=== PATIENT | female | born 1995 | race African-American/Black ===

== ENCOUNTER 2017-03-20 22:28 | Emergency (ER) | payer SELFPAY ==
[~2017-03-20] VITALS: Ht 165.1 cm; Wt 90.7 kg
[~2017-03-20 22:28] MED LIST: PNV1TABL25 PO
[2017-03-20 22:40] VITALS: BP 125/73
[2017-03-20] MEDS ORDERED: NAPR500T PO (22:51)
[2017-03-20] MEDS ORDERED: SULF1TAB24 PO (22:51)
--- NOTE | 2017-03-20 22:51 | PHYS DOC ---
Past Medical History Past Medical History: No Pertinent History Past Surgical History: No Surgical History Alcohol Use: None Drug Use: None Adult General Chief Complaint Chief Complaint: SKIN RASH/ABSCESS HPI HPI Patient is a 21 year old female presents to the emergency department with complaints of an abscess on the left medial thigh. She states it been present for one week. She states she poked with a needle and drained green stuff today. She reports no fever. Review of Systems Review of Systems Constitutional: Denies fever or chills [] Eyes: Denies change in visual acuity, redness, or eye pain [] HENT: Denies nasal congestion or sore throat [] Respiratory: Denies cough or shortness of breath [] Cardiovascular: No additional information not addressed in HPI [] GI: Denies abdominal pain, nausea, vomiting, bloody stools or diarrhea [] : Denies dysuria or hematuria [] Musculoskeletal: Denies back pain or joint pain [] Integument: Abscess Neurologic: Denies headache, focal weakness or sensory changes [] Endocrine: Denies polyuria or polydipsia [] Allergies Allergies Allergies Coded Allergies Type Severity Reaction Last Updated Verified No Known Drug Allergies 09/26/13 No Physical Exam Physical Exam Constitutional: Well developed, well nourished, no acute distress, non-toxic appearance. [] Neck: Normal range of motion, no tenderness, supple without lymphadenopathy, no stridor. [] Cardiovascular:Heart rate regular rhythm, no murmur [] Lungs & Thorax: Bilateral breath sounds clear to auscultation [] Abdomen: Bowel sounds normal, soft, no tenderness, no masses, no pulsatile masses. [] Skin: Left medial thigh with a 1 cm area of induration with erythema. There is no fluctuance. Is mildly tender to palpate. EKG EKG [] Radiology/Procedures Radiology/Procedures [] Course & Med Decision Making Course & Med Decision Making Pertinent Labs and Imaging studies reviewed. (See chart for details) [] Dragon Disclaimer Dragon Disclaimer This electronic medical record was generated, in whole or in part, using a voice recognition dictation system. Departure Departure Impression: Primary Impression: Cellulitis Disposition: 01 HOME, SELF-CARE Condition: STABLE Referrals: NO PCP (PCP) [facility] Patient Instructions: Cellulitis Additional Instructions: Warm packs to the affected area for 15 minutes 5-6 times a day. Please do not poke or prod the affected area. Scripts Naproxen (NAPROSYN) 500 Mg Tablet 500 MG PO BID Y for PAIN, #20 TAB Prov: JUAN MANUEL BROTHERS APRN 03/20/17 Sulfamethoxazole/Trimethoprim (BACTRIM DS TABLET) 1 Each Tablet 1 TAB PO BID, #20 TAB Prov: JUAN MANUEL BROTHERS APRN 03/20/17 Problem Qualifiers Primary Impression: Cellulitis Site of cellulitis: extremity Site of cellulitis of extremity: lower extremity Laterality: left Qualified Codes: L03.116 - Cellulitis of left lower limb JUAN MANUEL BROTHERS APRN Mar 20, 2017 22:51
== END 2017-03-20 22:55 | disposition home or self-care (01) ==
LOC: ER 22:28
DX: L03.116 Cellulitis of left lower limb (principal)
CPT/HCPCS: 99283

== ENCOUNTER 2017-03-24 17:11 | Emergency (ER) | payer SELFPAY ==
[~2017-03-24] VITALS: Ht 165.1 cm; Wt 90.7 kg
[~2017-03-24 17:11] MED LIST changes: +NAPR500T PO; +SULF1TAB24 PO
[2017-03-24 17:17] VITALS: BP 143/86
[2017-03-24] MEDS ORDERED: CETIRIZINE HCL 10 MG TABLET. PO STA (17:38)
[2017-03-24] MEDS ORDERED: cefTRIAXone IM 1 GM VIAL IM ONE (17:45)
[2017-03-24] MEDS ORDERED: LIDOCAINE 1% PF 2 ML VIAL. INJ ONE (17:45)
[2017-03-24] MEDS ORDERED: FAMOTIDINE 20 MG TABLET. PO ONE (17:45)
[2017-03-24] MEDS ORDERED: predniSONE 20 MG TABLET PO ONE (17:45)
[2017-03-24] MEDS ORDERED: CETI10TA22 PO (18:05)
[2017-03-24] MEDS ORDERED: FAMO20TA5 PO (18:05)
[2017-03-24] MEDS ORDERED: PRED50TA PO (18:05)
[2017-03-24] MEDS ORDERED: CEPH500T PO (18:05)
--- NOTE | 2017-03-24 18:06 | PHYS DOC ---
Past Medical History Past Medical History: No Pertinent History Additional Past Medical Histor: GESTATIONAL DIABETES Past Surgical History: Alcohol Use: None Drug Use: None Adult General Chief Complaint Chief Complaint: ALLERGIC REACTION HPI HPI Patient is a 21 year old female who presents complaining of an allergic reaction to Bactrim and or naproxen. Patient states she was seen in the ED on March 20, 2017 and was prescribed the medications for cellulitis of the left inner thigh. Patient states she took the first dose of both medications yesterday at 12 PM and noted her lower lip was swollen. Patient presents to the ED today to be evaluated. Patient denies any difficulty breathing. Denies any throat swelling. Review of Systems Review of Systems Constitutional: Denies fever or chills [] Eyes: Denies change in visual acuity, redness, or eye pain [] HENT: Lower lip swelling. Denies nasal congestion or sore throat [] Respiratory: Denies cough or shortness of breath [] Cardiovascular: No additional information not addressed in HPI [] GI: Denies abdominal pain, nausea, vomiting, bloody stools or diarrhea [] : Denies dysuria or hematuria [] Musculoskeletal: Denies back pain or joint pain [] Integument: Denies rash or skin lesions [] Neurologic: Denies headache, focal weakness or sensory changes [] Current Medications Current Medications Current Medications Medications (Trade) Dose Ordered Sig/Mo Start Time Stop Time Status Last Admin Dose Admin Ceftriaxone Sodium (Rocephin Im) 1 gm 1X ONCE 03/24/17 17:45 03/24/17 17:46 DC Cetirizine HCl (ZyrTEC) 10 mg 1X STAT 03/24/17 17:38 03/24/17 17:46 DC Famotidine (Pepcid) 20 mg 1X ONCE 03/24/17 17:45 03/24/17 17:46 DC Lidocaine HCl (Xylocaine-Mpf 1% Vial) 2 ml 1X ONCE 03/24/17 17:45 03/24/17 17:46 DC Prednisone (Prednisone) 60 mg 1X ONCE 03/24/17 17:45 03/24/17 17:46 DC Allergies Allergies Allergies Coded Allergies Type Severity Reaction Last Updated Verified No Known Drug Allergies 09/26/13 No Physical Exam Physical Exam Constitutional: Well developed, well nourished, no acute distress, non-toxic appearance. [] HENT: Normocephalic, atraumatic, bilateral external ears normal, oropharynx moist, no oral exudates, nose normal. [] No lower lip swelling was noted though patient states she feels her lip is bigger than normal. Eyes: PERRLA, EOMI, conjunctiva normal, no discharge. [] Neck: Normal range of motion, no tenderness, supple, no stridor. [] Cardiovascular:Heart rate regular rhythm, no murmur [] Lungs & Thorax: Bilateral breath sounds clear to auscultation [] Abdomen: Bowel sounds normal, soft, no tenderness, no masses, no pulsatile masses. [] Skin: Warm, dry, left inner thigh with a tiny none indurated area 1 x 1 cm that is being treated for cellulitis. Back: No tenderness, no CVA tenderness. [] Extremities: No tenderness, no cyanosis, no clubbing, ROM intact, no edema. [] Neurologic: Alert and oriented X 3, normal motor function, normal sensory function, no focal deficits noted. [] Psychologic: Affect normal, judgement normal, mood normal. [] Current Patient Data Vital Signs Vital Signs Date Time Temp Pulse Resp B/P (MAP) Pulse Ox O2 Delivery O2 Flow Rate FiO2 03/24/17 17:17 98.3 87 20 143/86 (105) 100 Room Air 98.3 EKG EKG [] Radiology/Procedures Radiology/Procedures [] Course & Med Decision Making Course & Med Decision Making Pertinent Labs and Imaging studies reviewed. (See chart for details) Patient is in the ED complaining of lower lip swelling after taking Bactrim and naproxen yesterday. No significant lower lip swelling was noted in the ED. She was given prednisone Zyrtec and famotidine and discharged with the same. She was given Rocephin IM for her cellulitis. She was discharged with cephalexin and instructed to follow-up with her PCP in 1-2 weeks. She was instructed to return to the ED at any point symptoms worsen or she develops any new concerning symptoms. Dragon Disclaimer Dragon Disclaimer This electronic medical record was generated, in whole or in part, using a voice recognition dictation system. Departure Departure Impression: Primary Impression: Angioedema Additional Impressions: Allergic reaction to drug Lower extremity cellulitis Disposition: 01 HOME, SELF-CARE Condition: STABLE Referrals: NO PCP (PCP) Follow-up with your own doctor in 1-2 weeks Patient Instructions: Angioedema Additional Instructions: You were seen with an allergic reaction to Bactrim and or naproxen. Do not take this medications anymore. We put you on cephalexin. Ensure you complete it. Take the prescribed prednisone until completed. Take Benadryl every 4 hours until symptoms are completely gone. If Benadryl is making you sleepy you can take Zyrtec during the day and Benadryl during the night. Take Pepcid every day until symptoms are gone. Scripts Famotidine (FAMOTIDINE) 20 Mg Tablet 20 MG PO DAILY, #14 TAB Prov: ANGY GREEN APRN 03/24/17 Prednisone (PREDNISONE) 50 Mg Tablet 1 TAB PO DAILY, #4 TAB Prov: ANGY GREEN APRN 03/24/17 Cephalexin (CEPHALEXIN) 500 Mg Tablet 1 TAB PO QID, #40 TAB Prov: ANGY GREEN APRN 03/24/17 Cetirizine Hcl (ZYRTEC) 10 Mg Tablet 1 TAB PO DAILY, #30 TAB 2 Refills Prov: ANGY GREEN APRN 03/24/17 Problem Qualifiers Primary Impression: Angioedema Encounter type: initial encounter Qualified Codes: T78.3XXA - Angioneurotic edema, initial encounter Additional Impressions: Allergic reaction to drug Encounter type: initial encounter Qualified Codes: T78.40XA - Allergy, unspecified, initial encounter Lower extremity cellulitis Laterality: left Qualified Codes: L03.116 - Cellulitis of left lower limb ANGY GREEN APRN Mar 24, 2017 18:06
== END 2017-03-24 18:16 | disposition home or self-care (01) ==
LOC: ER 17:11
DX: T78.3XXA Angioneurotic edema, initial encounter (principal); T37.0X5A Adverse effect of sulfonamides, initial encounter; T39.315A Adverse effect of propionic acid derivatives, initial encounter; L03.116 Cellulitis of left lower limb; Y92.89 Other specified places as the place of occurrence of the external cause
CPT/HCPCS: 96372; 99284; J0696; J7512

== ENCOUNTER 2017-07-28 23:16 | Emergency (ER) | payer OTHER ==
[2017-07-29] MEDS: HYDROcodone/APAP 5/325MG 1 TAB TABLET PO (00:15)
[2017-07-29] MEDS: diphenhydrAMINE HCL 25 MG CAPSULE PO (00:16)
== END 2017-07-29 00:31 | disposition home or self-care (01) ==
LOC: ER 23:16
DX: J20.9 Acute bronchitis, unspecified (principal)
CPT/HCPCS: 99283; Q0163

== ENCOUNTER 2018-03-18 18:04 | Emergency (ER) | payer SELFPAY ==
[~2018-03-18] VITALS: Ht 165.1 cm; Wt 90.7 kg
[~2018-03-18 18:04] MED LIST changes: +AZIT250T6 PO; +CEPH500T PO; +CETI10TA22 PO; +FAMO20TA5 PO; +NAPR-683 PO; -NAPR500T PO; +PRED20TA PO; +PRED50TA PO
[2018-03-18] MEDS: IBUPROFEN 600 MG TABLET. PO ONE (18:59)
[2018-03-18] MEDS: LIDOCAINE 1% PF 2 ML VIAL. INJ ONE (19:00)
[2018-03-18] MEDS ORDERED: SULF1TAB24 PO (20:02)
--- NOTE | 2018-03-18 20:02 | PHYS DOC ---
Past Medical History Past Medical History: Other Additional Past Medical Histor: GESTATIONAL DIABETES Past Surgical History: Additional Information: < O.5 PPD Alcohol Use: None Drug Use: None Adult General Chief Complaint Chief Complaint: ABSCESS HPI HPI Patient is a 22 year old [f__sex] who presents with [] Review of Systems Review of Systems Constitutional: Denies fever or chills [] Eyes: Denies change in visual acuity, redness, or eye pain [] HENT: Denies nasal congestion or sore throat [] Respiratory: Denies cough or shortness of breath [] Cardiovascular: No additional information not addressed in HPI [] GI: Denies abdominal pain, nausea, vomiting, bloody stools or diarrhea [] : Denies dysuria or hematuria [] Musculoskeletal: Denies back pain or joint pain [] Integument: Denies rash or skin lesions [] Neurologic: Denies headache, focal weakness or sensory changes [] Endocrine: Denies polyuria or polydipsia [] All other systems were reviewed and found to be within normal limits, except as documented in this note. Current Medications Current Medications Current Medications Medications (Trade) Dose Ordered Sig/Mo Start Time Stop Time Status Last Admin Dose Admin Ibuprofen (Motrin) 600 mg 1X ONCE 03/18/18 18:45 03/18/18 18:47 DC 03/18/18 18:59 600 MG Lidocaine HCl (Xylocaine-Mpf 1% 2ml Vial) 4 ml 1X ONCE 03/18/18 18:45 03/18/18 18:47 DC 03/18/18 19:00 4 ML Allergies Allergies Allergies Coded Allergies Type Severity Reaction Last Updated Verified coconut Allergy Unknown 03/18/18 Yes Physical Exam Physical Exam Constitutional: Well developed, well nourished, no acute distress, non-toxic appearance. [] HENT: Normocephalic, atraumatic, bilateral external ears normal, oropharynx moist, no oral exudates, nose normal. [] Eyes: PERRLA, EOMI, conjunctiva normal, no discharge. [] Neck: Normal range of motion, no tenderness, supple, no stridor. [] Cardiovascular:Heart rate regular rhythm, no murmur [] Lungs & Thorax: Bilateral breath sounds clear to auscultation [] Abdomen: Bowel sounds normal, soft, no tenderness, no masses, no pulsatile masses. [] Skin: Warm, dry, no erythema, no rash. [] Back: No tenderness, no CVA tenderness. [] Extremities: No tenderness, no cyanosis, no clubbing, ROM intact, no edema. [] Neurologic: Alert and oriented X 3, normal motor function, normal sensory function, no focal deficits noted. [] Psychologic: Affect normal, judgement normal, mood normal. [] Current Patient Data Vital Signs Vital Signs Date Time Temp Pulse Resp B/P (MAP) Pulse Ox O2 Delivery O2 Flow Rate FiO2 03/18/18 20:17 89 20 141/63 (89) 100 Room Air 03/18/18 18:07 98.5 98.5 Lab Values Microbiology 03/18/18 Aerobic Culture - Final, Complete 03/18/18 Aerobic Culture Result 1 (ARIANA) - Final, Complete 03/18/18 Antimicrobic Susceptibility - Final, Complete 03/18/18 Gram Stain - Final, Complete 03/18/18 Gram Stain Result 1 (ARIANA) - Final, Complete 03/18/18 Gram Stain Result 2 (ARIANA) - Final, Complete 03/18/18 Gram Stain Result 3 (ARIANA) - Final, Complete Microbiology 03/18/18 Aerobic Culture - Final, Complete 03/18/18 Aerobic Culture Result 1 (ARIANA) - Final, Complete 03/18/18 Antimicrobic Susceptibility - Final, Complete 03/18/18 Gram Stain - Final, Complete 03/18/18 Gram Stain Result 1 (ARIANA) - Final, Complete 03/18/18 Gram Stain Result 2 (ARIANA) - Final, Complete 03/18/18 Gram Stain Result 3 (ARIANA) - Final, Complete EKG EKG [] Radiology/Procedures Radiology/Procedures [] Course & Med Decision Making Course & Med Decision Making Pertinent Labs and Imaging studies reviewed. (See chart for details) 1940: I&D left arm abscess 03/25/2018 16:48 [place] [employer]-Called regarding wound culture results. Strep noted on the culture. Was d/c on Bactrim. Need PCN drugs 03/27/18 [id number] Spoke with patient who states that sx have improved and the area is no longer painful, erythremic, or draining any pus. She also denies any fever and reports feeling much better. Advised pt to continue wound care as instructed and return to ER if symptoms worsen. Advised that drainage of the site is the treatment for a skin abscess and that if sx have improved no antibiotic is needed. Price Novak Disclaimer Kishore Disclaimer This electronic medical record was generated, in whole or in part, using a voice recognition dictation system. Departure Departure Impression: Primary Impression: Abscess Disposition: 01 HOME, SELF-CARE Condition: STABLE Referrals: NO PCP (PCP) Patient Instructions: Abscess Additional Instructions: You should have wound reevaluation in 48 hours to have packing removed. With any concerns or worsening symptoms follow-up with primary care physician or return to emergency department. Tylenol and/or ibuprofen as needed for pain control as directed on container. Warm compress to area every 3-4 hours for 20- 30 minutes at a time. Scripts Sulfamethoxazole/Trimethoprim (BACTRIM DS TABLET) 1 Each Tablet 1 TAB PO BID, #14 TAB 0 Refills Prov: MARYANNE WHITE APRN 03/18/18 MARYANNE WHITE APRN Mar 18, 2018 20:02 BERTHA GREEN APRN Mar 25, 2018 16:49 MARY ORTA APRN Mar 27, 2018 12:06
[2018-03-18 20:17] VITALS: BP 141/63
== END 2018-03-18 20:17 | disposition home or self-care (01) ==
LOC: ER 18:04
DX: L02.414 Cutaneous abscess of left upper limb (principal); F17.200 Nicotine dependence, unspecified, uncomplicated; Z98.890 Other specified postprocedural states; Z91.018 Allergy to other foods
CPT/HCPCS: 87070; 87186; 99283; 99284

== ENCOUNTER 2018-09-23 05:41 | Emergency (ER) | payer SELFPAY ==
[~2018-09-23] VITALS: Ht 165.1 cm; Wt 97.5 kg
[2018-09-23 06:05] VITALS: BP 145/84
[2018-09-23] MEDS ORDERED: NAPR-683 PO (06:25)
[2018-09-23] MEDS ORDERED: SULF1TAB24 PO (06:25)
[2018-09-23] MEDS ORDERED: CEPH-264 PO (06:25)
--- NOTE | 2018-09-23 06:25 | PHYS DOC ---
Past Medical History Past Medical History: Other Additional Past Medical Histor: GESTATIONAL DIABETES Past Surgical History: Smoking: Cigarettes Alcohol Use: None Drug Use: None Adult General Chief Complaint Chief Complaint: ABSCESS HPI HPI Patient is a 22 year old female who presents with complaining of a cyst or abscess in her thigh. Patient complaining of painful lesion in left upper thigh since yesterday without fever and chills, drainage of pus, injury. Patient states she had left axillary abscess previously and waited 2 weeks before seeking medical attention and decided to come earlier for this one. Review of Systems Review of Systems Constitutional: Denies fever or chills [] Eyes: Denies change in visual acuity, redness, or eye pain [] HENT: Denies nasal congestion or sore throat [] Respiratory: Denies cough or shortness of breath [] Cardiovascular: No additional information not addressed in HPI [] GI: Denies abdominal pain, nausea, vomiting, bloody stools or diarrhea [] : Denies dysuria or hematuria [] Musculoskeletal: Denies back pain or joint pain [] Integument: Denies rash, reports skin lesions [] Neurologic: Denies headache, focal weakness or sensory changes [] Endocrine: Denies polyuria or polydipsia [] All other systems were reviewed and found to be within normal limits, except as documented in this note. Allergies Allergies Allergies Coded Allergies Type Severity Reaction Last Updated Verified coconut Allergy Unknown 03/18/18 Yes Physical Exam Physical Exam Constitutional: Well developed, well nourished, mild distress, non-toxic appearance. [] HENT: Normocephalic, atraumatic. Eyes: PERRLA, EOMI, conjunctiva normal, no discharge. [] Neck: Normal range of motion, no tenderness, supple, no stridor. [] Cardiovascular:Heart rate regular rhythm, no murmur [] Lungs & Thorax: Bilateral breath sounds clear to auscultation [] Skin: Warm, dry, no erythema, no rash, 1 x 1 cm area of tenderness and erythema in upper medial side of left thigh without fluctuation. [] Back: No tenderness, no CVA tenderness. [] Extremities: No cyanosis, no clubbing, ROM intact, no edema. [] Neurologic: Alert and oriented X 3, normal motor function, normal sensory function, no focal deficits noted. [] Psychologic: Affect normal, judgement normal, mood normal. [] Current Patient Data Vital Signs Vital Signs Date Time Temp Pulse Resp B/P (MAP) Pulse Ox O2 Delivery O2 Flow Rate FiO2 09/23/18 06:05 98.6 105 18 145/84 (104) 99 Room Air 98.6 EKG EKG [] Radiology/Procedures Radiology/Procedures [] Course & Med Decision Making Course & Med Decision Making Evaluation of patient in ER showed 22-year-old female patient presented with cellulitis of left upper thigh without sign of abscess. Patient advised about plan of care and is to return in ER in 48 hours if not getting better for drainage of possible abscess formation. Dragon Disclaimer Dragon Disclaimer This electronic medical record was generated, in whole or in part, using a voice recognition dictation system. Departure Departure Impression: Primary Impression: Cellulitis of left thigh Additional Impressions: Tobacco abuse Tobacco abuse counseling Disposition: HOME, SELF-CARE (at [phone]) Condition: STABLE Referrals: NO PCP (PCP) Patient Instructions: Cellulitis, Community-Associated MRSA, Smoking Cessation, Tips For Success Additional Instructions: Drink plenty of liquids Follow-up with your primary care physician in 3-5 days Return to ER if not getting better Apply moist pad on affected area Scripts Naproxen (NAPROSYN) 500 Mg Tablet 1 TAB PO BID for pain, #20 TAB Prov: ELEANOR MANCERA MD 09/23/18 Cephalexin (KEFLEX) 500 Mg Capsule 2 CAP PO Q12HR, #28 CAP Prov: ELEANOR MANCERA MD 09/23/18 Sulfamethoxazole/Trimethoprim (BACTRIM DS TABLET) 1 Each Tablet 1 TAB PO BID for infection, #14 TAB Prov: ELEANOR MANCERA MD 09/23/18 Problem Qualifiers ELEANOR MANCERA MD Sep 23, 2018 06:25
== END 2018-09-23 06:43 | disposition home or self-care (01) ==
LOC: ER 05:41
DX: L03.116 Cellulitis of left lower limb (principal); F17.210 Nicotine dependence, cigarettes, uncomplicated; Z71.6 Tobacco abuse counseling; Z91.018 Allergy to other foods
CPT/HCPCS: 99283

== ENCOUNTER 2018-11-30 10:17 | Emergency (ER) | payer OTHER ==
[~2018-11-30] VITALS: Ht 165.1 cm; Wt 95.8 kg
[~2018-11-30 10:17] MED LIST changes: +CEPH-264 PO
[2018-11-30 10:25] VITALS: BP 121/79
[2018-11-30 12:04] LABS: BASO % 1 % (0-3); EOS # 0.1 x10^3/uL (0.0-0.7); EOS % 2 % (0-3); HEMATOCRIT 32.2 % (36.0-47.0); HEMOGLOBIN 11.2 g/dL (12.0-15.5); LYMPH # 1.3 x10^3/uL (1.0-4.8); LYMPH % 27 % (24-48); MEAN CORPUSCULAR HEMOGLOBIN 32 pg (25-35); MEAN CORPUSCULAR HGB CONC 35 g/dL (31-37); MEAN CORPUSCULAR VOLUME 91 fL (79-100); MONO # 0.3 x10^3/uL (0.0-1.1); MONO % 7 % (0-9); NEUT # 3.1 x10^3uL (1.8-7.7); NEUT % 63 % (31-73); PLATELET COUNT 260 x10^3/uL (140-400); RED BLOOD COUNT 3.55 x10^6/uL (3.50-5.40); RED CELL DISTRIBUTION WIDTH 13.2 % (11.5-14.5); WHITE BLOOD COUNT 4.9 x10^3/uL (4.0-11.0)
[2018-11-30 12:04] LABS: BILIRUBIN,URINE NEGATIVE (NEG); CLARITY,URINE CLEAR; COLOR,URINE YELLOW; NITRITE,URINE POSITIVE (NEG); PROTEIN,URINE NEGATIVE (NEG-TRACE)
--- NOTE | 2018-11-30 12:04 | PHYS DOC ---
Past Medical History Past Medical History: No Pertinent History Additional Past Medical Histor: GESTATIONAL DIABETES Past Surgical History: Alcohol Use: Occasionally Drug Use: None Adult General Chief Complaint Chief Complaint: ABDOMINAL PAIN IN HPI HPI Patient is a 23-year-old female, 2, para 1, with a twin gestation of about 11 weeks, naturally conceived, Who presents to the emergency department for evaluation. The patient states that yesterday she had some right lower abdominal discomfort, which is described as a cramping pain, which has since resolved. She reports no abdominal discomfort at this time. She just wanted to "get checked out". She has had an ultrasound at her OBs office and was told that everything was well, and her looked good. she has had some intermittent vomiting throughout her , no more than usual recently. She has not had any fevers or chills or urinary symptoms, denies any vaginal bleeding or discharge. There are no alleviating or exacerbating factors to her symptoms. She is not having any pain at this time. Review of Systems Review of Systems Constitutional: Denies fever or chills [] Eyes: Denies change in visual acuity, redness, or eye pain [] HENT: Denies nasal congestion or sore throat [] Respiratory: Denies cough or shortness of breath [] Cardiovascular: No additional information not addressed in HPI [] GI: Denies bloody stools or diarrhea [] : Denies dysuria or hematuria [] Musculoskeletal: Denies back pain or joint pain [] Integument: Denies rash or skin lesions [] Neurologic: Denies headache, focal weakness or sensory changes [] Endocrine: Denies polyuria or polydipsia [] All other systems were reviewed and found to be within normal limits, except as documented in this note. Current Medications Current Medications Current Medications Medications (Trade) Dose Ordered Sig/Mo Start Time Stop Time Status Last Admin Dose Admin Acetaminophen (Tylenol) 1,000 mg 1X ONCE 11/30/18 12:15 11/30/18 12:16 DC 11/30/18 11:56 1,000 MG Allergies Allergies Allergies Coded Allergies Type Severity Reaction Last Updated Verified coconut Allergy Unknown 03/18/18 Yes Physical Exam Physical Exam PHYSICAL EXAM: CONSTITUTIONAL: Well developed, well nourished HEAD: normocephalic, atraumatic EENT: PERRL, EOMI. Conjunctivae normal color, sclerae non-icteric; moist mucous membranes. NECK: Supple, non-tender; no meningismus. LUNGS: Lungs CTA, breathing even and unlabored. Normal air movement. HEART: Regular rate and rhythm, no murmur CHEST: No deformity; non-tender ABDOMEN: The abdomen is soft, there is mild diffuse tenderness to palpation in the lower abdomen, most prominent in the left lower abdomen, without rebound or guarding, the right lower quadrant itself is relatively non-tender, no masses or bruits. Normal bowel sounds are present. EXTREM: Normal ROM; no deformity, no calf tenderness. Normal pulses palpable in all extremities. There is no pedal edema. SKIN: No rash; no diaphoresis NEURO: Alert; normal speech and cognition; CN's grossly intact; strength grossly intact without focal deficit. BACK: No CVA TTP. Current Patient Data Vital Signs Vital Signs Date Time Temp Pulse Resp B/P (MAP) Pulse Ox O2 Delivery O2 Flow Rate FiO2 11/30/18 10:25 98.2 99 20 121/79 (93) 99 Room Air 98.2 Lab Values Laboratory Tests Test 11/30/18 11:10 11/30/18 11:20 11/30/18 11:52 Urine Collection Type Unknown Urine Color Yellow Urine Clarity Clear Urine pH 7.0 Urine Specific [place] 1.025 Urine Protein Negative mg/dL (NEG-TRACE) Urine Glucose (UA) Negative mg/dL (NEG) Urine Ketones (Stick) Negative mg/dL (NEG) Urine Blood Negative (NEG) Urine Nitrite Positive (NEG) Urine Bilirubin Negative (NEG) Urine Urobilinogen Dipstick 1.0 mg/dL (0.2 mg/dL) Urine Leukocyte Esterase Moderate (NEG) Urine RBC 0 /HPF (0-2) Urine WBC 20-40 /HPF (0-4) Urine Squamous Epithelial Cells Mod /LPF Urine Bacteria Many /HPF (0-FEW) Urine Mucus Marked /LPF POC Urine HCG, Qualitative Hcg positive (Negative) White Blood Count 4.9 x10^3/uL (4.0-11.0) Red Blood Count 3.55 x10^6/uL (3.50-5.40) Hemoglobin 11.2 g/dL (12.0-15.5) L Hematocrit 32.2 % (36.0-47.0) L Mean Corpuscular Volume 91 fL (79-100) Mean Corpuscular Hemoglobin 32 pg (25-35) Mean Corpuscular Hemoglobin Concent 35 g/dL (31-37) Red Cell Distribution Width 13.2 % (11.5-14.5) Platelet Count 260 x10^3/uL (140-400) Neutrophils (%) (Auto) 63 % (31-73) Lymphocytes (%) (Auto) 27 % (24-48) Monocytes (%) (Auto) 7 % (0-9) Eosinophils (%) (Auto) 2 % (0-3) Basophils (%) (Auto) 1 % (0-3) Neutrophils # (Auto) 3.1 x10^3uL (1.8-7.7) Lymphocytes # (Auto) 1.3 x10^3/uL (1.0-4.8) Monocytes # (Auto) 0.3 x10^3/uL (0.0-1.1) Eosinophils # (Auto) 0.1 x10^3/uL (0.0-0.7) Basophils # (Auto) 0.0 x10^3/uL (0.0-0.2) Sodium Level 137 mmol/L (136-145) Potassium Level 3.8 mmol/L (3.5-5.1) Chloride Level 103 mmol/L (98-107) Carbon Dioxide Level 25 mmol/L (21-32) Anion Gap 9 (6-14) Blood Urea Nitrogen 8 mg/dL (7-20) Creatinine 0.5 mg/dL (0.6-1.0) L Estimated GFR (Cockcroft-Gault) 186.7 BUN/Creatinine Ratio 16 (6-20) Glucose Level 91 mg/dL (70-99) Calcium Level 8.9 mg/dL (8.5-10.1) Total Bilirubin 0.3 mg/dL (0.2-1.0) Aspartate Amino Transferase (AST) 11 U/L (15-37) L Alanine Aminotransferase (ALT) 12 U/L (14-59) L Alkaline Phosphatase 51 U/L (46-116) Total Protein 6.3 g/dL (6.4-8.2) L Albumin 2.9 g/dL (3.4-5.0) L Albumin/Globulin Ratio 0.9 (1.0-1.7) L Lipase 60 U/L (73-393) L Laboratory Tests 11/30/18 11:52 Laboratory Tests 11/30/18 11:52 EKG EKG [] Radiology/Procedures Radiology/Procedures [] Course & Med Decision Making Course & Med Decision Making Pertinent Labs and Imaging studies reviewed. (See chart for details) [] ER physician. Bedside ultrasound: Intrauterine twin gestation noted with movement and cardiac activity noted to both fetuses. 11:45 PM: Patient's condition remained stable. I discussed test results in detail, the need for close follow-up, and return precautions. The patient was recently treated with a course of amoxicillin for a UTI. Dragon Disclaimer Dragon Disclaimer This electronic medical record was generated, in whole or in part, using a voice recognition dictation system. Departure Departure Impression: Primary Impression: Abdominal pain affecting Additional Impression: UTI (urinary tract infection) Disposition: 01 HOME, SELF-CARE Condition: STABLE Referrals: NO PCP (PCP) Patient Instructions: Abdominal Pain During , - Urinary Tract Infection Additional Instructions: Tylenol as needed for pain. Follow-up with your primary consumer lending manager for further evaluation. Scripts Nitrofurantoin Monohyd/M-Cryst (MACROBID [id number] MG CAPSULE) 100 Mg Capsule 1 CAP PO BID, #14 CAP Prov: WERO GANN MD 11/30/18 Problem Qualifiers WERO GANN MD Nov 30, 2018 12:04
[2018-11-30] MEDS ORDERED: ACETAMINOPHEN 500 MG TABLET PO ONE (12:15)
[2018-11-30 12:19] LABS: SQUAMOUS EPITHELIAL CELL,UR MOD /LPF
[2018-11-30 12:21] LABS: BACTERIA,URINE MANY /HPF (0-FEW); RBC,URINE 0 /HPF (0-2); WBC,URINE 20-40 /HPF (0-4)
[2018-11-30 12:22] LABS: CALCIUM 8.9 mg/dL (8.5-10.1); CREATININE 0.5 mg/dL (0.6-1.0); GFR 186.7; POTASSIUM 3.8 mmol/L (3.5-5.1)
[2018-11-30 12:28] LABS: ALBUMIN 2.9 g/dL (3.4-5.0); ALBUMIN/GLOBULIN RATIO 0.9 (1.0-1.7); TOTAL BILIRUBIN 0.3 mg/dL (0.2-1.0); TOTAL PROTEIN 6.3 g/dL (6.4-8.2)
[2018-11-30] MEDS ORDERED: NITR100C62 PO (12:46)
== END 2018-11-30 12:54 | disposition home or self-care (01) ==
LOC: ER 10:17
DX: O23.41 Unspecified infection of urinary tract in pregnancy, first trimester (principal); R10.31 Right lower quadrant pain; O21.8 Other vomiting complicating pregnancy; O24.419 Gestational diabetes mellitus in pregnancy, unspecified control; Z98.890 Other specified postprocedural states; Z91.018 Allergy to other foods; Z3A.11 11 weeks gestation of pregnancy
CPT/HCPCS: 36415; 80053; 81001; 81025; 83690; 85025; 87086; 99284; 99285-25

== ENCOUNTER 2019-01-27 18:46 | Emergency (ER) | payer OTHER ==
[~2019-01-27] VITALS: Ht 165.1 cm; Wt 96.6 kg
[~2019-01-27 18:46] MED LIST changes: +NITR100C62 PO
[2019-01-27] MEDS ORDERED: IV NORMAL SALINE 1000ML BAG 1,000 ML IV ONE ×2 (19:15→21:00)
--- NOTE | 2019-01-27 19:15 | NUR ---
RN was called to do doppler on 19weeks twins. Baby A's heart beat was 150's and baby B was 140's.
[2019-01-27 19:21] LABS: BASO % 0 % (0-3); EOS # 0.2 x10^3/uL (0.0-0.7); EOS % 2 % (0-3); HEMATOCRIT 33.7 % (36.0-47.0); HEMOGLOBIN 11.5 g/dL (12.0-15.5); LYMPH # 1.3 x10^3/uL (1.0-4.8); LYMPH % 11 % (24-48); MEAN CORPUSCULAR HEMOGLOBIN 31 pg (25-35); MEAN CORPUSCULAR HGB CONC 34 g/dL (31-37); MEAN CORPUSCULAR VOLUME 92 fL (79-100); MONO # 0.5 x10^3/uL (0.0-1.1); MONO % 4 % (0-9); NEUT # 9.9 x10^3/uL (1.8-7.7); NEUT % 83 % (31-73); PLATELET COUNT 255 x10^3/uL (140-400); RED BLOOD COUNT 3.68 x10^6/uL (3.50-5.40); RED CELL DISTRIBUTION WIDTH 13.4 % (11.5-14.5); WHITE BLOOD COUNT 12.1 x10^3/uL (4.0-11.0)
[2019-01-27 19:28] LABS: CALCIUM 9.2 mg/dL (8.5-10.1); CREATININE 0.6 mg/dL (0.6-1.0); GFR 151.3; POTASSIUM 3.6 mmol/L (3.5-5.1)
[2019-01-27 19:34] LABS: ALBUMIN 2.9 g/dL (3.4-5.0); ALBUMIN/GLOBULIN RATIO 0.6 (1.0-1.7); TOTAL BILIRUBIN 0.3 mg/dL (0.2-1.0); TOTAL PROTEIN 7.6 g/dL (6.4-8.2)
--- NOTE | 2019-01-27 20:32 | PHYS DOC ---
Past Medical History Past Medical History: No Pertinent History Additional Past Medical Histor: GESTATIONAL DIABETES, PLACENTAL RUPTURE Past Surgical History: Alcohol Use: None Drug Use: None Adult General Chief Complaint Chief Complaint: DIZZY/LIGHT HEADED HPI HPI Patient is a 23 year old female who presents with the last today she's had shortness of air, dizziness, low back pain with stuffy nose and a cough started today. Patient denies fevers. Patient is 19 weeks and 5 days with twins is due June 18. Patient's FERMENTATION SCIENTIST is at . Patient denies abdominal pain, vaginal bleeding. Patient states she had gone for OB appointment and that she was getting medication for a UTI but was only taking 1 pill a day and was not taking them right and so she states that she was given asked her doctor if taken give her more antibiotic. Patient previous had an emergency because of placental rupture. She has a history of gestational diabetes, UTI and smokes 3 cigarettes a day at this time. Patient is afebrile. Heart rate 106, 97% on room air, 126/66. Patient states she has no pain just dizziness. Patient states she has not been eating or drinking enough the last couple of days. Patient is ambulatory with a steady gait. Review of Systems Review of Systems Constitutional: Denies fever or chills [] Eyes: Denies change in visual acuity, redness, or eye pain [] HENT: nasal congestion or sore throat [] Respiratory: cough or shortness of breath [] Cardiovascular: Denies GI: Denies abdominal pain, nausea, vomiting, bloody stools or diarrhea [] : Denies dysuria or hematuria [] Musculoskeletal: Low back pain or joint pain [] Neurologic: Dizziness. Denies headache, focal weakness or sensory changes [] All other systems were reviewed and found to be within normal limits, except as documented in this note. Current Medications Current Medications Current Medications Medications (Trade) Dose Ordered Sig/Mo Start Time Stop Time Status Last Admin Dose Admin Sodium Chloride 1,000 ml @ 1,000 mls/hr 1X ONCE 01/27/19 21:00 01/27/19 21:59 01/27/19 21:14 1,000 MLS/HR Allergies Allergies Allergies Coded Allergies Type Severity Reaction Last Updated Verified coconut Allergy Unknown 03/18/18 Yes Physical Exam Physical Exam Constitutional: Well developed, well nourished, no acute distress, non-toxic appearance. [] HENT: Normocephalic, atraumatic, bilateral external ears normal, oropharynx moist, no oral exudates, nose normal. [] Eyes: PERRLA, EOMI, conjunctiva normal, no discharge. [] Cardiovascular:Heart rate tachy regular rhythm, no murmur [] Lungs & Thorax: Bilateral breath sounds clear to auscultation [] Abdomen: Bowel sounds normal, soft, no tenderness, no masses, no pulsatile masses. [] Skin: Warm, dry, no erythema, no rash. [] Back: No tenderness, no CVA tenderness. [] Extremities: No tenderness, no cyanosis, no clubbing, ROM intact, no edema. [] Neurologic: Alert and oriented X 3, normal motor function, normal sensory function, no focal deficits noted. [] Psychologic: Affect normal, judgement normal, mood normal. [] Current Patient Data Vital Signs Vital Signs Date Time Temp Pulse Resp B/P (MAP) Pulse Ox O2 Delivery O2 Flow Rate FiO2 01/27/19 19:05 98.7 108 24 126/66 (86) 97 Room Air 98.7 Lab Values Laboratory Tests Test 01/27/19 19:15 01/27/19 21:10 White Blood Count 12.1 x10^3/uL (4.0-11.0) H Red Blood Count 3.68 x10^6/uL (3.50-5.40) Hemoglobin 11.5 g/dL (12.0-15.5) L Hematocrit 33.7 % (36.0-47.0) L Mean Corpuscular Volume 92 fL (79-100) Mean Corpuscular Hemoglobin 31 pg (25-35) Mean Corpuscular Hemoglobin Concent 34 g/dL (31-37) Red Cell Distribution Width 13.4 % (11.5-14.5) Platelet Count 255 x10^3/uL (140-400) Neutrophils (%) (Auto) 83 % (31-73) H Lymphocytes (%) (Auto) 11 % (24-48) L Monocytes (%) (Auto) 4 % (0-9) Eosinophils (%) (Auto) 2 % (0-3) Basophils (%) (Auto) 0 % (0-3) Neutrophils # (Auto) 9.9 x10^3/uL (1.8-7.7) H Lymphocytes # (Auto) 1.3 x10^3/uL (1.0-4.8) Monocytes # (Auto) 0.5 x10^3/uL (0.0-1.1) Eosinophils # (Auto) 0.2 x10^3/uL (0.0-0.7) Basophils # (Auto) 0.0 x10^3/uL (0.0-0.2) Sodium Level 138 mmol/L (136-145) Potassium Level 3.6 mmol/L (3.5-5.1) Chloride Level 102 mmol/L (98-107) Carbon Dioxide Level 24 mmol/L (21-32) Anion Gap 12 (6-14) Blood Urea Nitrogen 9 mg/dL (7-20) Creatinine 0.6 mg/dL (0.6-1.0) Estimated GFR (Cockcroft-Gault) 151.3 BUN/Creatinine Ratio 15 (6-20) Glucose Level 111 mg/dL (70-99) H Calcium Level 9.2 mg/dL (8.5-10.1) Total Bilirubin 0.3 mg/dL (0.2-1.0) Aspartate Amino Transferase (AST) 13 U/L (15-37) L Alanine Aminotransferase (ALT) 13 U/L (14-59) L Alkaline Phosphatase 80 U/L (46-116) Total Protein 7.6 g/dL (6.4-8.2) Albumin 2.9 g/dL (3.4-5.0) L Albumin/Globulin Ratio 0.6 (1.0-1.7) L Urine Collection Type Unknown Urine Color [place] Urine Clarity Clear Urine pH 6.5 Urine Specific [place] >=1.030 Urine Protein Negative mg/dL (NEG-TRACE) Urine Glucose (UA) Negative mg/dL (NEG) Urine Ketones (Stick) 15 mg/dL (NEG) Urine Blood Negative (NEG) Urine Nitrite Negative (NEG) Urine Bilirubin Small (NEG) Urine Urobilinogen Dipstick 1.0 mg/dL (0.2 mg/dL) Urine Leukocyte Esterase Trace (NEG) Urine RBC 0 /HPF (0-2) Urine WBC 1-4 /HPF (0-4) Urine Squamous Epithelial Cells Many /LPF Urine Bacteria Few /HPF (0-FEW) Urine Mucus Marked /LPF Laboratory Tests 01/27/19 19:15 Laboratory Tests 01/27/19 19:15 EKG EKG Sinus Tachycardia and no STEMI[] Interpretation Time: [address] Oliveira Radiology/Procedures Radiology/Procedures [] Course & Med Decision Making Course & Med Decision Making Patient is a 23 year old female who presents with the last today she's had shortness of air, dizziness, low back pain with stuffy nose and a cough started today. Patient denies fevers. Patient is 19 weeks and 5 days with twins is due June 18. Patient's FERMENTATION SCIENTIST is at . Patient denies abdominal pain, vaginal bleeding. Patient states she had gone for OB appointment and that she was getting medication for a UTI but was only taking 1 pill a day and was not taking them right and so she states that she was given asked her doctor if taken give her more antibiotic. Patient previous wasn't had an emergency C- section because of placental rupture she has a history of gestational diabetes, UTI and smokes 3 cigarettes a day at this time. Patient is afebrile. Heart rate 106, 97% on room air, 126/66. Patient states she has no pain just dizziness. Patient is ambulatory with a steady gait. Alert and oriented. Ambulatory with steady gait. Skin pink warm and dry. PERRLA. Neurologically intact. Mucus membranes moist. Patient states her appetite has been decreased she's not been e ating or drinking as much. No extremity swelling and no calf tenderness. Lungs are clear to auscultation all lobes. Patient denies chest pain, syncope, numbness or tingling, dysuria symptoms, fever, visual changes. [place] labor and delivery came down to ED and found heartbeat #1 in the left lower quadrant at 150 and heartbeat #2 in the right lower quadrant at 140. With upper respiratory symptoms I am not concerned with PE. After 1 L of fluid patient's heart rate is down to 97. Patient states she is feeling much better after fluid is given states her dizziness is gone and that she is just tired now. Patient states she has not shortness of breath at this time. Vital signs remain stable. Orthostatic blood pressure: Layin/63; 98 Sittin/58; 101 Standin/64;104 Blood work is unremarkable. Urinalysis does not show infection but does show dehydration and contamination. Patient denies dysuria symptoms. Patient is diagnosed with dehydration and . Patient should start taking Benadryl for her nasal congestion as this is safe for the baby. Patient is to call her OB doctor tomorrow to let them know she was seen here for dehydration. She states she is feeling much better and no longer shortness of air or dizziness. Vital signs remain unremarkable. Patient has negative orthostatics. Patient has received 2 L bolus normal saline in the ED. Dragon Disclaimer Dragon Disclaimer This electronic medical record was generated, in whole or in part, using a voice recognition dictation system. Departure Departure Impression: Primary Impression: Dehydration during Disposition: 01 HOME, SELF-CARE Condition: STABLE Referrals: NO PCP (PCP) Patient Instructions: Dehydration, Adult, Dizziness Additional Instructions: Call your OB doctor in the morning to let them know of her symptoms and that you are in the ED and were dehydrated. Drink as much water and fluids that you can. Take Tylenol for any pain. CARMELLA BARAJAS [employer]OWER ELECT[employer]ICS RESEARCH ENGINEER Jan 27, 2019 20:32
[2019-01-27 21:20] LABS: BILIRUBIN,URINE SMALL (NEG); CLARITY,URINE CLEAR; COLOR,URINE AMBER; NITRITE,URINE NEGATIVE (NEG); PH,URINE 6.5; PROTEIN,URINE NEGATIVE (NEG-TRACE)
[2019-01-27 21:25] LABS: SQUAMOUS EPITHELIAL CELL,UR MANY /LPF
[2019-01-27 21:27] LABS: BACTERIA,URINE FEW /HPF (0-FEW); RBC,URINE 0 /HPF (0-2)
[2019-01-27 22:08] VITALS: BP 118/68
--- NOTE | 2019-01-28 06:46 | EKG ---
[facility] [address] [place] [id number] Test Date: 2019-01-27 Test Time: 19:38:29 Pat Name: JOANNA AMADO Department: Room: Gender: F Lawyer: : 1995 Requested By: CARMELLA BARAJAS Order Number: [id number] Reading MD: Patrick Vieyra MD Measurements Intervals [place] Rate: 101 P: 65 WI: 146 QRS: 44 QRSD: 80 T: 24 QT: 332 QTc: 436 Interpretive Statements SINUS TACHYCARDIA Electronically Signed On 01-28-2019 14:16:16 CDT by Patrick Vieyra MD
[2019-01-31] MEDS ORDERED: METO5VIA4 PO (10:12)
[2019-01-31] MEDS ORDERED: ONDA4VIA7 PO (10:12)
[2019-01-31] MEDS ORDERED: PANT40VI PO (10:12)
== END 2019-01-27 22:20 | disposition home or self-care (01) ==
LOC: ER 18:46
DX: O99.282 Endocrine, nutritional and metabolic diseases complicating pregnancy, second trimester (principal); E86.0 Dehydration; R42 Dizziness and giddiness; M54.5 Low back pain; R05 Cough; Z91.018 Allergy to other foods; Z98.890 Other specified postprocedural states; Z3A.19 19 weeks gestation of pregnancy
CPT/HCPCS: 36415; 80053; 81001; 85025; 87086; 87186; 93005; J7030; 99285-25